=== PATIENT | male | born 1940 | race Caucasian/White ===

== ENCOUNTER 2018-06-25 16:07 | Emergency (ER) | payer MEDICARE, BC ==
[~2018-06-25] VITALS: Ht 180.3 cm; Wt 92.3 kg
[2018-06-25 16:24] VITALS: BP 153/75
[2018-06-25] MEDS ORDERED: furosemide 40mg/4ml inj IV ONE (16:30)
[2018-06-25 16:52] LABS: BASOPHILS % (AUTO) 0.4 % (0-1); EOSINOPHILS # (AUTO) 0.1 X10'3 (0-0.9); EOSINOPHILS % (AUTO) 1.3 % (0-6); HEMATOCRIT 36.1 % (42.0-52.0); HEMOGLOBIN 12.3 g/dl (14.0-17.9); LYMPHOCYTES # (AUTO) 0.9 X10'3 (1.1-4.8); LYMPHOCYTES % (AUTO) 19.8 % (21-51); MEAN CORPUSCULAR HEMOGLOBIN 33.3 PG (27.0-31.0); MEAN CORPUSCULAR VOLUME 97.8 FL (78-98); MEAN PLATELET VOLUME 8.3 FL (7.4-10.4); MONOCYTES # (AUTO) 0.5 X10'3 (0-0.9); MONOCYTES % (AUTO) 10.5 % (2-12); PLATELET COUNT 69 X10'3 (140-440); RED BLOOD COUNT 3.69 X10'6 (4.70-6.10); RED CELL DISTRIBUTION WIDTH 17.5 % (11.5-14.5); WHITE BLOOD COUNT 4.4 X10'3 (4.5-11.0)
[2018-06-25 17:06] LABS: ALANINE AMINOTRANSFERASE 25 U/L (12-78); ALBUMIN 2.9 G/DL (3.4-5.0); ALBUMIN/GLOBULIN RATIO 0.9 (1.1-1.5); ALKALINE PHOSPHATASE 93 IU/L (46-116); ANION GAP 7 (8-16); ASPARTATE AMINO TRANSFERASE 42 U/L (10-37); BILIRUBIN,TOTAL 0.5 MG/DL (0.1-1.0); BLOOD UREA NITROGEN 16 MG/DL (7-18); BUN/CREATININE RATIO 19.3 (5.4-32.0); CHLORIDE 110 MMOL/L (99-107); CREATININE 0.83 MG/DL (0.60-1.10); GLUCOSE 78 MG/DL (70-104); POTASSIUM 4.1 MMOL/L (3.5-5.1); SODIUM 146 MMOL/L (135-145); TOTAL CARBON DIOXIDE 29.5 MMOL/L (24-32); TOTAL PROTEIN 6.3 G/DL (6.4-8.2); eGFR 89 ML/MIN
[2018-06-25 17:25] LABS: INR 1.2 INR; PROTHROMBIN TIME 11.6 SECONDS (9.0-12.0)
--- NOTE | 2018-06-25 18:07 | NUR ---
TINNING EQUIPMENT TENDER IS ENROUTE.
--- NOTE | 2018-06-25 18:45 | NUR ---
VASC IN ROOM Addendum: 06/25/18 at 1852 by AVRIL VASC IN ROOM WHEN I WENT TO DO EKG
== END 2018-06-25 20:36 | disposition home or self-care (01) ==
LOC: ER 16:07
DX: I89.0 Lymphedema, not elsewhere classified (principal); R91.1 Solitary pulmonary nodule; R79.1 Abnormal coagulation profile; Z88.0 Allergy status to penicillin; Z88.2 Allergy status to sulfonamides; Z91.09 Other allergy status, other than to drugs and biological substances
CPT/HCPCS: 36415; 71045; 80053; 83880; 85025; 85610; 93971; 96374; 99284; J1940

== ENCOUNTER 2018-08-31 11:53 | Emergency (ER) | payer MEDICARE, BC ==
[~2018-08-31] VITALS: Ht 180.3 cm; Wt 114.5 kg
[2018-08-31] MEDS ORDERED: furosemide 10 MG/1 ML 10ml inj IM ONE (13:45)
[2018-08-31] MEDS ORDERED: HYDR-4383 PO (13:46)
[2018-08-31] MEDS ORDERED: FURO-150 PO (13:46)
--- NOTE | 2018-08-31 13:54 | NUR ---
BP PRIOR TO LASIX IS: 130/69
[2018-08-31 14:07] VITALS: BP 130/69
== END 2018-08-31 14:10 | disposition home or self-care (01) ==
LOC: ER 11:54
DX: R60.0 Localized edema (principal); G89.29 Other chronic pain; E78.00 Pure hypercholesterolemia, unspecified; E11.9 Type 2 diabetes mellitus without complications; E78.5 Hyperlipidemia, unspecified; Z90.89 Acquired absence of other organs; Z88.0 Allergy status to penicillin; Z88.2 Allergy status to sulfonamides
CPT/HCPCS: 93005; 96372; 99283; J1940

== ENCOUNTER 2018-10-21 10:37 | Inpatient (IN) | payer MEDICARE, BC ==
[~2018-10-21] VITALS: Ht 180.3 cm; Wt 118.0 kg
[~2018-10-21 10:37] MED LIST: FURO-150 PO; HYDR-4383 PO
[2018-10-21 11:28] LABS: BASOPHILS % (AUTO) 0.6 % (0-1); EOSINOPHILS # (AUTO) 0.5 X10'3 (0-0.9); EOSINOPHILS % (AUTO) 7.4 % (0-6); HEMATOCRIT 32.7 % (42.0-52.0); LYMPHOCYTES # (AUTO) 0.7 X10'3 (1.1-4.8); LYMPHOCYTES % (AUTO) 10.9 % (21-51); MEAN CORPUSCULAR HEMOGLOBIN 33.6 PG (27.0-31.0); MEAN CORPUSCULAR HGB CONC 33.6 g/dL (33.0-36.5); MEAN CORPUSCULAR VOLUME 99.9 FL (78-98); MEAN PLATELET VOLUME 7.9 FL (7.4-10.4); MONOCYTES # (AUTO) 0.7 X10'3 (0-0.9); MONOCYTES % (AUTO) 10.7 % (2-12); NEUTROPHILS # (AUTO) 4.6 X10'3 (1.8-7.7); NEUTROPHILS % (AUTO) 70.4 % (42-75); PLATELET COUNT 123 X10'3 (140-440); RED BLOOD COUNT 3.27 X10'6 (4.70-6.10); RED CELL DISTRIBUTION WIDTH 16.4 % (11.5-14.5); WHITE BLOOD COUNT 6.6 X10'3 (4.5-11.0)
[2018-10-21 11:43] LABS: PARTIAL THROMBOPLASTIN TIME 30 SECONDS (22-32)
--- NOTE | 2018-10-21 11:45 | NUR ---
PT TRYING TO GET OUT OF BED, STATES THAT NO ONE HAS BEEN IN. PT REASSURED, INFORMED THAT HE IS BEING TAKEN CARE OF BUT HIS NURSE IS WITH ANOTHER PT AT THIS TIME. PT DENIES BEING SICK. PT NOTED TO HAVE SIGNIFICAN AUDIBLE WHEEZES AND LL EDEMA AND PT WAS INFORMED THAT HE WAS BROUGHT TO THE ER FOR FURTHER EVALUATION. PT CONTINUES TO STATE HE WANTS TO GO HOME.
[2018-10-21 11:54] LABS: ALANINE AMINOTRANSFERASE 22 U/L (12-78); ALBUMIN 2.6 G/DL (3.4-5.0); ALBUMIN/GLOBULIN RATIO 0.7 (1.1-1.5); ALKALINE PHOSPHATASE 138 IU/L (46-116); ANION GAP 3 (8-16); ASPARTATE AMINO TRANSFERASE 33 U/L (10-37); BILIRUBIN,TOTAL 0.9 MG/DL (0.1-1.0); BLOOD UREA NITROGEN 18 MG/DL (7-18); BUN/CREATININE RATIO 16.2 (5.4-32.0); CALCIUM 9.1 MG/DL (8.5-10.1); CHLORIDE 106 MMOL/L (99-107); CREATININE 1.11 MG/DL (0.60-1.10); GLUCOSE 279 MG/DL (70-104); POTASSIUM 4.5 MMOL/L (3.5-5.1); SODIUM 137 MMOL/L (135-145); TOTAL CARBON DIOXIDE 27.6 MMOL/L (24-32); TOTAL PROTEIN 6.6 G/DL (6.4-8.2); eGFR 64 ML/MIN
--- NOTE | 2018-10-21 11:59 | NUR ---
PT ITCHING, PULLED ALL HIS EKG LEADS AND MONITORING OFF, SAYS THEY WERE IN THE WAY OF HIS "ITCHING"
[2018-10-21] MEDS ORDERED: aspirin 81mg tab.chew PO ONE (12:30)
[2018-10-21] MEDS ORDERED: furosemide 10 MG/1 ML 10ml inj IV ONE (12:30)
[2018-10-21] MEDS ORDERED: diphenhydrAMINE 50 mg/ml inj IV ONE (12:35)
[2018-10-21] MEDS ORDERED: heparin 25,000 UNIT/250ml bag 250 ML IV SCH (12:41)
[2018-10-21] MEDS ORDERED: heparin 10,000 units/1 ML INJ IV PRN (12:45)
[2018-10-21] MEDS ORDERED: potassium Cl 20 mEq SR tablet PO PRN ×2 (12:45)
[2018-10-21] MEDS ORDERED: heparin 10,000 units/1 ML INJ IV ONE (12:45)
[2018-10-21] MEDS ORDERED: acetaminophen 325mg tablet PO PRN (12:45)
[2018-10-21] MEDS ORDERED: magnesium 2GM in 50ml NS 50 ML IV PRN (12:45)
[2018-10-21] MEDS ORDERED: potassium CL 10mEq/100ml bag 100 ML IV PRN ×2 (12:45)
[2018-10-21] MEDS ORDERED: magnesium 4gm in 100ml NS 100 ML IV PRN (12:45)
[2018-10-21] MEDS ORDERED: magnesium hydroxide 30ml (MOM) UD suspension PO PRN (12:45)
[2018-10-21] MEDS ORDERED: ondansetron/PF 4mg/2ml inj IV PRN (12:45)
[2018-10-21] MEDS ORDERED: mag hydrox/Alum hydrox/simeth 30ml oral suspension PO PRN (12:45)
[2018-10-21] MEDS ORDERED: FURO20TA4 PO (13:06)
[2018-10-21] MEDS ORDERED: DEXT20CA4 PO (13:15)
[2018-10-21] MEDS ORDERED: INSU100V9 SQ (13:15)
[2018-10-21] MEDS ORDERED: BACL10TA PO (13:15)
[2018-10-21] MEDS ORDERED: OXYC-145 PO (13:15)
[2018-10-21] MEDS ORDERED: HYDR-3686 PO (13:15)
[2018-10-21] MEDS ORDERED: INSU100V11 SQ (13:15)
[2018-10-21] MEDS ORDERED: METF500T20 PO (13:15)
[2018-10-21] MEDS ORDERED: PRAM0.253 PO ×2 (13:15→15:02)
[2018-10-21] MEDS ORDERED: BUSP10TA10 PO (13:15)
[2018-10-21] MEDS ORDERED: ATOR40TA71 PO (13:15)
[2018-10-21] MEDS ORDERED: iohexol 350MG/ML 100ml bottle IV ONE (13:18)
--- NOTE | 2018-10-21 14:56 | NUR ---
I have received report from Ellen YODER and had the opportunity to ask questions, the patient has not yet arrived from the ED.
[2018-10-21 15:00] VITALS: BP 117/73
[2018-10-21] MEDS ORDERED: LISI2.5T2 PO (15:02)
[2018-10-21] MEDS ORDERED: FAMO20TA8 PO (15:02)
[2018-10-21] MEDS ORDERED: TRAM50TA2 PO (15:02)
[2018-10-21] MEDS ORDERED: DULO-31 PO (15:02)
--- NOTE | 2018-10-21 15:48 | NUR ---
Patient arrived with a POLST that states his wishes are to be a DNR, but he is listed as a full code in the system. Paged Dr Lucas to have him change code status. PAGER ID: [phone] MESSAGE: Shefali on ACCE at [phone] in 310. He just arrived from the ED if you want to come see him. Also, his wishes are to be a DNR. Can you discuss with him and change code status in the system? Thank you Addendum: 10/21/18 at 1750 by She[address]ali Soto RN Dr Lucas met with the patient and called patient's son. Order changed to Limited code, meds only.
[2018-10-21] MEDS: ipratropium/albuterol 3ml nebule NEB PRN ×3 (16:13→23:37)
[2018-10-21] MEDS ORDERED: MESSAGE TO PHARMACY PO ONE ×2 (16:40→17:50)
[2018-10-21] MEDS ORDERED: dextrose ORAL solution 15 GM/59 ML bottle PO PRN ×4 (16:40→17:50)
[2018-10-21] MEDS ORDERED: dextrose 50%-water 50ml dispensing syringe IV PRN ×4 (16:40→17:50)
[2018-10-21] MEDS ORDERED: glucagon, human recombinant 1mg kit SUBCUT PRN ×2 (16:40→17:50)
[2018-10-21] MEDS ORDERED: insulin Lispro (HumaLOG) vial - multi-dose SQ SCH (16:40)
[2018-10-21] MEDS ORDERED: metFORMIN 500mg tablet PO SCH (17:30)
[2018-10-21] MEDS: pramipexole 0.25mg tablet PO SCH ×2 (17:49→20:30)
--- NOTE | 2018-10-21 17:49 | NUR ---
PAGER ID: [phone] MESSAGE: Shefali on ACCE at [phone] re [address] in 310. The patient is saying he takes both Metformin AND Humalog/lantus at home, we typically do one or the other. Can you confirm what you want done with this?
[2018-10-21 18:00] VITALS: BP 127/52
--- NOTE | 2018-10-21 18:34 | NUR ---
Problems reprioritized. Patient report given, questions answered & plan of care reviewed with Jihan YODER.
--- NOTE | 2018-10-21 18:35 | NUR ---
ORientee documentation: I have reviewed and agree with all interventions, assessments performed and documented by Carmelina YODER. Orientee Medication Administration: For this medication-pass time frame, all medication were reviewed, dispensed, administered and documented per hospital policy by Carmelina YODER.
[2018-10-21] MEDS ORDERED: non-formulary drug (Metformin Hcl* (Metformin ER*) 1 TAB) PO SCH (20:00)
[2018-10-21] MEDS: famotidine 20mg tablet PO SCH (20:30)
[2018-10-21] MEDS: carVEDilol 3.125mg tablet PO SCH (20:31)
[2018-10-21] MEDS: apixaban 5mg tablet PO SCH (20:34)
[2018-10-21] MEDS: oxyCODONE IR 5mg (immed. release) tablet PO PRN (20:42)
[2018-10-21] MEDS ORDERED: insulin glargine (Lantus) pen - multi-dose SQ SCH (21:00)
[2018-10-21] MEDS ORDERED: pramipexole 0.25mg tablet PO SCH (21:00)
[2018-10-21] MEDS: insulin glargine (Lantus) pen - multi-dose SQ SCH (21:00)
[2018-10-21 22:00] VITALS: BP 108/57
[2018-10-21] MEDS: HYDROmorphone inj. 0.5 MG/0.5 ML DISP.SYRIN IV PRN (22:00)
--- NOTE | 2018-10-21 23:17 | NUR ---
Call placed to Dr Perry to notify MD workers' compensation hearings officer to notify him that pt was c/o itching terribly. Order obtained for Eric.
[2018-10-21] MEDS ORDERED: diphenhydrAMINE 25mg capsule PO ONE (23:20)
[2018-10-22 02:00] VITALS: BP 107/61
[2018-10-22] MEDS: ipratropium/albuterol 3ml nebule NEB PRN ×5 (03:42→20:40)
[2018-10-22] MEDS: oxyCODONE IR 5mg (immed. release) tablet PO PRN ×3 (04:18→18:16)
[2018-10-22 05:16] LABS: BASOPHILS % (AUTO) 0.5 % (0-1); EOSINOPHILS # (AUTO) 0.6 X10'3 (0-0.9); HEMATOCRIT 29.6 % (42.0-52.0); LYMPHOCYTES # (AUTO) 0.8 X10'3 (1.1-4.8); LYMPHOCYTES % (AUTO) 14.1 % (21-51); MEAN CORPUSCULAR HEMOGLOBIN 33.7 PG (27.0-31.0); MEAN CORPUSCULAR HGB CONC 33.8 g/dL (33.0-36.5); MEAN CORPUSCULAR VOLUME 99.6 FL (78-98); MEAN PLATELET VOLUME 8.1 FL (7.4-10.4); MONOCYTES # (AUTO) 0.5 X10'3 (0-0.9); MONOCYTES % (AUTO) 9.5 % (2-12); NEUTROPHILS # (AUTO) 3.7 X10'3 (1.8-7.7); NEUTROPHILS % (AUTO) 65.9 % (42-75); PLATELET COUNT 102 X10'3 (140-440); RED BLOOD COUNT 2.98 X10'6 (4.70-6.10); RED CELL DISTRIBUTION WIDTH 16.6 % (11.5-14.5); WHITE BLOOD COUNT 5.6 X10'3 (4.5-11.0)
[2018-10-22 05:23] LABS: ALANINE AMINOTRANSFERASE 19 U/L (12-78); ALBUMIN 2.3 G/DL (3.4-5.0); ALBUMIN/GLOBULIN RATIO 0.6 (1.1-1.5); ALKALINE PHOSPHATASE 125 IU/L (46-116); ANION GAP 5 (8-16); ASPARTATE AMINO TRANSFERASE 24 U/L (10-37); BILIRUBIN,TOTAL 1.2 MG/DL (0.1-1.0); BLOOD UREA NITROGEN 20 MG/DL (7-18); CALCIUM 8.5 MG/DL (8.5-10.1); CHLORIDE 105 MMOL/L (99-107); CHOL/HDL RATIO 2.2 (0.00-4.99); CHOLESTEROL 91 MG/DL (0-200); CREATININE 1.05 MG/DL (0.60-1.10); GLUCOSE 228 MG/DL (70-104); HDL CHOLESTEROL 42 MG/DL (35-60); LDL CHOLESTEROL 43 MG/DL (50-100); SODIUM 137 MMOL/L (135-145); TOTAL PROTEIN 5.9 G/DL (6.4-8.2); TRIGLYCERIDES 62 MG/DL (20-135); eGFR 68 ML/MIN
[2018-10-22] MEDS: HYDROmorphone inj. 0.5 MG/0.5 ML DISP.SYRIN IV PRN ×2 (05:39→22:05)
[2018-10-22 06:00] VITALS: BP 145/61
--- NOTE | 2018-10-22 06:24 | NUR ---
Patient in room MED 310. I have received report from Jihan YODER and had the opportunity to ask questions and assume patient care.
[2018-10-22] MEDS ORDERED: BUSPIRONE HCL PO SCH (08:00)
[2018-10-22] MEDS: K and/or MAG REPLACEMENT MC SCH (08:00)
[2018-10-22] MEDS: duloxetine 30mg CAPSULE.DR PO SCH (08:00)
[2018-10-22] MEDS: busPIRone 15mg tablet PO SCH (08:24)
[2018-10-22] MEDS: apixaban 5mg tablet PO SCH ×2 (08:25→19:40)
[2018-10-22] MEDS: carVEDilol 3.125mg tablet PO SCH ×2 (08:25→19:40)
[2018-10-22] MEDS: famotidine 20mg tablet PO SCH ×2 (08:29→19:40)
[2018-10-22] MEDS: lisinopril 2.5mg tablet PO SCH (08:30)
[2018-10-22] MEDS: pramipexole 0.25mg tablet PO SCH ×2 (08:32→22:06)
[2018-10-22] MEDS: furosemide 20 MG/2 ML vial IV SCH ×2 (09:18→19:40)
[2018-10-22] MEDS: insulin Lispro (HumaLOG) vial - multi-dose SQ SCH ×3 (10:26→22:16)
[2018-10-22 11:00] VITALS: BP 109/60
--- NOTE | 2018-10-22 11:26 | NUR ---
DM Consult: Pt A1C <7 and not appropriate for DM ed at this time. Addendum: 10/22/18 at [address] Amended: Links added.
[2018-10-22] MEDS ORDERED: pramipexole 0.25mg tablet PO SCH (12:30)
[2018-10-22 15:00] VITALS: BP 123/57
--- NOTE | 2018-10-22 15:33 | NUR ---
PAGER ID: [phone] MESSAGE: ROOM 310. PT YOUNG MCGHEE. PT. HAS HAD COMPLAINTS OF ITCHING, HAD A 1 TIME DOSE OF BENADRYL THAT HAS BEEN D/C. PLEASE ADVISE. THANK YOU. BEBA BARRETT [phone].
--- NOTE | 2018-10-22 17:36 | NUR ---
Orientee documentation: I have reviewed and agree with interventions, assessments performed and documented by Sari YODER.
[2018-10-22 18:00] VITALS: BP 122/62
--- NOTE | 2018-10-22 18:34 | NUR ---
Patient in room MED 310. I have received report from Treva YODER and had the opportunity to ask questions and assume patient care.
[2018-10-22] MEDS: triamcinolone acet 0.1% cream 15gm TP SCH (19:40)
[2018-10-22 22:00] VITALS: BP 130/66
[2018-10-22] MEDS: insulin glargine (Lantus) pen - multi-dose SQ SCH (22:18)
[2018-10-23] MEDS: ipratropium/albuterol 3ml nebule NEB PRN ×5 (02:53→20:49)
[2018-10-23] MEDS: HYDROmorphone inj. 0.5 MG/0.5 ML DISP.SYRIN IV PRN ×2 (02:54→17:36)
[2018-10-23] MEDS ORDERED: diphenhydrAMINE 25mg capsule PO PRN (03:30)
[2018-10-23 05:48] LABS: BASOPHILS % (AUTO) 0.3 % (0-1); EOSINOPHILS # (AUTO) 0.5 X10'3 (0-0.9); EOSINOPHILS % (AUTO) 10.8 % (0-6); HEMATOCRIT 30.3 % (42.0-52.0); HEMOGLOBIN 10.4 g/dl (14.0-17.9); LYMPHOCYTES # (AUTO) 0.9 X10'3 (1.1-4.8); LYMPHOCYTES % (AUTO) 17.8 % (21-51); MEAN CORPUSCULAR HEMOGLOBIN 34.1 PG (27.0-31.0); MEAN CORPUSCULAR HGB CONC 34.3 g/dL (33.0-36.5); MEAN CORPUSCULAR VOLUME 99.5 FL (78-98); MONOCYTES # (AUTO) 0.5 X10'3 (0-0.9); MONOCYTES % (AUTO) 9.6 % (2-12); NEUTROPHILS # (AUTO) 3.1 X10'3 (1.8-7.7); NEUTROPHILS % (AUTO) 61.5 % (42-75); PLATELET COUNT 107 X10'3 (140-440); RED BLOOD COUNT 3.04 X10'6 (4.70-6.10); RED CELL DISTRIBUTION WIDTH 16.5 % (11.5-14.5); WHITE BLOOD COUNT 5.1 X10'3 (4.5-11.0)
[2018-10-23 05:56] LABS: ALANINE AMINOTRANSFERASE 18 U/L (12-78); ALBUMIN 2.3 G/DL (3.4-5.0); ALBUMIN/GLOBULIN RATIO 0.6 (1.1-1.5); ALKALINE PHOSPHATASE 127 IU/L (46-116); ANION GAP 5 (8-16); ASPARTATE AMINO TRANSFERASE 25 U/L (10-37); BILIRUBIN,TOTAL 1.1 MG/DL (0.1-1.0); BLOOD UREA NITROGEN 24 MG/DL (7-18); BUN/CREATININE RATIO 21.4 (5.4-32.0); CALCIUM 8.4 MG/DL (8.5-10.1); CHLORIDE 104 MMOL/L (99-107); CREATININE 1.12 MG/DL (0.60-1.10); GLUCOSE 261 MG/DL (70-104); MAGNESIUM 1.9 MG/DL (1.5-2.4); POTASSIUM 4.1 MMOL/L (3.5-5.1); SODIUM 137 MMOL/L (135-145); TOTAL CARBON DIOXIDE 28.5 MMOL/L (24-32); eGFR 63 ML/MIN
[2018-10-23 06:00] VITALS: BP 118/60
--- NOTE | 2018-10-23 06:00 | NUR ---
Patient in room MED 310. I have received report from and had the opportunity to ask questions and assume patient care.
[2018-10-23] MEDS: K and/or MAG REPLACEMENT MC SCH (08:00)
[2018-10-23] MEDS: triamcinolone acet 0.1% cream 15gm TP SCH ×2 (08:00→19:45)
[2018-10-23] MEDS: duloxetine 30mg CAPSULE.DR PO SCH (08:00)
[2018-10-23] MEDS: busPIRone 15mg tablet PO SCH (09:37)
[2018-10-23] MEDS: pramipexole 0.25mg tablet PO SCH ×2 (09:37→13:52)
[2018-10-23] MEDS: apixaban 5mg tablet PO SCH ×2 (09:40→19:35)
[2018-10-23] MEDS: carVEDilol 3.125mg tablet PO SCH ×2 (09:41→19:35)
[2018-10-23] MEDS: oxyCODONE IR 5mg (immed. release) tablet PO PRN ×3 (09:42→23:24)
[2018-10-23] MEDS: lisinopril 2.5mg tablet PO SCH (09:42)
[2018-10-23] MEDS: famotidine 20mg tablet PO SCH ×2 (09:43→19:35)
[2018-10-23] MEDS: furosemide 20 MG/2 ML vial IV SCH ×2 (09:43→13:54)
[2018-10-23] MEDS: insulin Lispro (HumaLOG) vial - multi-dose SQ SCH ×4 (09:45→21:29)
[2018-10-23 11:00] VITALS: BP 114/55
[2018-10-23] MEDS: hydrOXYzine 25 MG tablet PO PRN (13:53)
--- NOTE | 2018-10-23 14:50 | NUR ---
PAGER ID: [phone] MESSAGE: 310: Dino - does he still require PCU/ACCE level of care? or do you mind if we downgrade to surgical or ortho/neuro? ty nurse Louise [phone]
[2018-10-23 15:00] VITALS: BP 122/59
--- NOTE | 2018-10-23 16:48 | NUR ---
I have received patient report from Carmelina YODER in avila
[2018-10-23 17:00] VITALS: BP 133/69
--- NOTE | 2018-10-23 17:10 | NUR ---
Pt JAE to Ortho Neuro room 4024A via WC at 17:15 with nurse aid. Pt was placed on tele box, placed on O2 at 2L via nasal canula. Pt left with all personal belongings.
--- NOTE | 2018-10-23 17:10 | NUR ---
Orientee documentation: I have reviewed and agree with interventions, assessments performed and documented by BEBA Cosme. Orientee Medication Administration: For this medication-pass time frame, all medication were reviewed, dispensed, administered and documented per hospital policy by BEBA Cosme .
--- NOTE | 2018-10-23 18:47 | NUR ---
Patient report given to Nathalie YODER
--- NOTE | 2018-10-23 20:30 | NUR ---
Patient in room ORTHO 4024. I have received report from BEBA Arias and had the opportunity to ask questions and assume patient care.
[2018-10-23] MEDS: montelukast 10mg tablet PO SCH (21:23)
[2018-10-23] MEDS: insulin glargine (Lantus) pen - multi-dose SQ SCH (21:28)
[2018-10-23 22:00] VITALS: BP 117/60
[2018-10-24 06:00] VITALS: BP 119/63
[2018-10-24] MEDS: oxyCODONE IR 5mg (immed. release) tablet PO PRN ×3 (06:29→17:19)
--- NOTE | 2018-10-24 06:35 | NUR ---
Problems reprioritized. Patient report given, questions answered & plan of care reviewed with BEBA Hayes.
[2018-10-24 06:40] LABS: BASOPHILS % (AUTO) 0.7 % (0-1); EOSINOPHILS # (AUTO) 0.7 X10'3 (0-0.9); EOSINOPHILS % (AUTO) 12.2 % (0-6); HEMATOCRIT 31.8 % (42.0-52.0); HEMOGLOBIN 10.9 g/dl (14.0-17.9); LYMPHOCYTES # (AUTO) 0.9 X10'3 (1.1-4.8); LYMPHOCYTES % (AUTO) 16.6 % (21-51); MEAN CORPUSCULAR HEMOGLOBIN 34.2 PG (27.0-31.0); MEAN CORPUSCULAR HGB CONC 34.1 g/dL (33.0-36.5); MEAN CORPUSCULAR VOLUME 100.2 FL (78-98); MEAN PLATELET VOLUME 7.8 FL (7.4-10.4); MONOCYTES # (AUTO) 0.6 X10'3 (0-0.9); MONOCYTES % (AUTO) 10.7 % (2-12); NEUTROPHILS # (AUTO) 3.4 X10'3 (1.8-7.7); NEUTROPHILS % (AUTO) 59.8 % (42-75); PLATELET COUNT 111 X10'3 (140-440); RED BLOOD COUNT 3.18 X10'6 (4.70-6.10); WHITE BLOOD COUNT 5.7 X10'3 (4.5-11.0)
--- NOTE | 2018-10-24 06:49 | NUR ---
Patient in room ORTHO 4024. I have received report from Nathalie YODER and had the opportunity to ask questions and assume patient care.
[2018-10-24 07:00] LABS: ALANINE AMINOTRANSFERASE 17 U/L (12-78); ALBUMIN 2.3 G/DL (3.4-5.0); ALBUMIN/GLOBULIN RATIO 0.6 (1.1-1.5); ALKALINE PHOSPHATASE 122 IU/L (46-116); ANION GAP 4 (8-16); ASPARTATE AMINO TRANSFERASE 21 U/L (10-37); BILIRUBIN,TOTAL 0.9 MG/DL (0.1-1.0); BLOOD UREA NITROGEN 26 MG/DL (7-18); BUN/CREATININE RATIO 25.2 (5.4-32.0); CALCIUM 7.9 MG/DL (8.5-10.1); CHLORIDE 102 MMOL/L (99-107); CREATININE 1.03 MG/DL (0.60-1.10); GLUCOSE 184 MG/DL (70-104); MAGNESIUM 1.8 MG/DL (1.5-2.4); SODIUM 135 MMOL/L (135-145); TOTAL CARBON DIOXIDE 28.6 MMOL/L (24-32); TOTAL PROTEIN 6.2 G/DL (6.4-8.2); eGFR 70 ML/MIN
[2018-10-24] MEDS: ipratropium/albuterol 3ml nebule NEB PRN ×2 (07:03→20:07)
[2018-10-24] MEDS: K and/or MAG REPLACEMENT MC SCH (07:08)
--- NOTE | 2018-10-24 07:23 | NUR ---
PAGER ID: [phone] MESSAGE: re: [id number] Chester baer patient very edematous and very short of breath respiratory saw patient and suggested to increase Lasix and or add solumedral, will continue to monitor Addendum: 10/24/18 at 1032 by Freddy Guardado RN hospitalist ordered chest xray
[2018-10-24] MEDS: furosemide 20 MG/2 ML vial IV SCH ×2 (07:35→13:59)
[2018-10-24] MEDS: pramipexole 0.25mg tablet PO SCH ×2 (07:35→14:00)
[2018-10-24] MEDS: carVEDilol 3.125mg tablet PO SCH ×2 (07:35→20:10)
[2018-10-24] MEDS: apixaban 5mg tablet PO SCH ×2 (07:36→20:10)
[2018-10-24] MEDS: duloxetine 30mg CAPSULE.DR PO SCH (07:36)
[2018-10-24] MEDS: lisinopril 2.5mg tablet PO SCH (07:37)
[2018-10-24] MEDS: busPIRone 15mg tablet PO SCH (07:37)
[2018-10-24] MEDS: famotidine 20mg tablet PO SCH ×2 (07:39→20:10)
[2018-10-24] MEDS: triamcinolone acet 0.1% cream 15gm TP SCH ×2 (07:39→20:11)
[2018-10-24] MEDS: insulin Lispro (HumaLOG) vial - multi-dose SQ SCH ×3 (09:13→21:28)
[2018-10-24 10:00] VITALS: BP 102/48
--- NOTE | 2018-10-24 10:32 | NUR ---
PAGER ID: [phone] MESSAGE: RE; [id number] Sun chest xray resulted
[2018-10-24] MEDS: hydrOXYzine 25 MG tablet PO PRN (10:44)
[2018-10-24] MEDS ORDERED: furosemide 10 MG/1 ML 10ml inj IV ONE (11:00)
[2018-10-24 14:00] VITALS: BP 112/78
[2018-10-24] MEDS ORDERED: furosemide 20 MG/2 ML vial IV SCH (14:00)
[2018-10-24] MEDS: baclofen 10mg tablet PO PRN (14:17)
[2018-10-24 17:00] VITALS: BP 90/44
[2018-10-24] MEDS: polyethylene glycol 3350 17gm powd pack PO PRN (17:18)
--- NOTE | 2018-10-24 18:26 | NUR ---
Problems reprioritized. Patient report given, questions answered & plan of care reviewed with Candice YODER.
--- NOTE | 2018-10-24 18:40 | NUR ---
Patient in room ORTHO 4024A. I have received report from BEBA Sousa and had the opportunity to ask questions and assume patient care.
[2018-10-24] MEDS: montelukast 10mg tablet PO SCH (20:10)
[2018-10-24] MEDS: HYDROmorphone 1 mg/ml syringe IV PRN (20:16)
[2018-10-24] MEDS: insulin glargine (Lantus) pen - multi-dose SQ SCH (20:25)
[2018-10-24 22:00] VITALS: BP 102/51
[2018-10-25] MEDS: baclofen 10mg tablet PO PRN (03:48)
[2018-10-25] MEDS: oxyCODONE IR 5mg (immed. release) tablet PO PRN ×2 (03:51→12:11)
[2018-10-25] MEDS: hydrOXYzine 25 MG tablet PO PRN ×2 (03:51→12:10)
--- NOTE | 2018-10-25 06:16 | NUR ---
Problems reprioritized. Patient report given, questions answered & plan of care reviewed with BEBA Mijares.
[2018-10-25 06:50] LABS: BASOPHILS % (AUTO) 0.4 % (0-1); EOSINOPHILS # (AUTO) 0.9 X10'3 (0-0.9); EOSINOPHILS % (AUTO) 13.3 % (0-6); HEMATOCRIT 29.4 % (42.0-52.0); HEMOGLOBIN 10.1 g/dl (14.0-17.9); LYMPHOCYTES # (AUTO) 1.1 X10'3 (1.1-4.8); LYMPHOCYTES % (AUTO) 15.6 % (21-51); MEAN CORPUSCULAR HEMOGLOBIN 34.4 PG (27.0-31.0); MEAN CORPUSCULAR HGB CONC 34.3 g/dL (33.0-36.5); MEAN CORPUSCULAR VOLUME 100.1 FL (78-98); MEAN PLATELET VOLUME 8.4 FL (7.4-10.4); MONOCYTES # (AUTO) 0.7 X10'3 (0-0.9); MONOCYTES % (AUTO) 10.3 % (2-12); NEUTROPHILS # (AUTO) 4.3 X10'3 (1.8-7.7); NEUTROPHILS % (AUTO) 60.4 % (42-75); PLATELET COUNT 120 X10'3 (140-440); RED BLOOD COUNT 2.94 X10'6 (4.70-6.10); RED CELL DISTRIBUTION WIDTH 16.9 % (11.5-14.5)
[2018-10-25 07:06] LABS: ALANINE AMINOTRANSFERASE 16 U/L (12-78); ALBUMIN 2.2 G/DL (3.4-5.0); ALBUMIN/GLOBULIN RATIO 0.6 (1.1-1.5); ALKALINE PHOSPHATASE 116 IU/L (46-116); ANION GAP 4 (8-16); ASPARTATE AMINO TRANSFERASE 26 U/L (10-37); BILIRUBIN,TOTAL 0.8 MG/DL (0.1-1.0); BLOOD UREA NITROGEN 31 MG/DL (7-18); CALCIUM 8.3 MG/DL (8.5-10.1); CHLORIDE 103 MMOL/L (99-107); CREATININE 0.97 MG/DL (0.60-1.10); GLUCOSE 57 MG/DL (70-104); POTASSIUM 3.8 MMOL/L (3.5-5.1); SODIUM 136 MMOL/L (135-145); TOTAL CARBON DIOXIDE 29.2 MMOL/L (24-32); TOTAL PROTEIN 5.8 G/DL (6.4-8.2); eGFR 75 ML/MIN
[2018-10-25 07:37] VITALS: BP 98/36
[2018-10-25] MEDS: K and/or MAG REPLACEMENT MC SCH (08:00)
[2018-10-25] MEDS: lisinopril 2.5mg tablet PO SCH (08:47)
[2018-10-25] MEDS: furosemide 20 MG/2 ML vial IV SCH ×2 (08:47→14:57)
[2018-10-25] MEDS: busPIRone 15mg tablet PO SCH (08:48)
[2018-10-25] MEDS: duloxetine 30mg CAPSULE.DR PO SCH (08:48)
[2018-10-25] MEDS: carVEDilol 3.125mg tablet PO SCH ×2 (08:48→20:38)
[2018-10-25] MEDS: pramipexole 0.25mg tablet PO SCH ×2 (08:48→14:56)
[2018-10-25] MEDS: apixaban 5mg tablet PO SCH ×2 (08:48→20:38)
[2018-10-25] MEDS: famotidine 20mg tablet PO SCH ×2 (08:48→20:38)
[2018-10-25] MEDS: HYDROmorphone 1 mg/ml syringe IV PRN (08:52)
[2018-10-25] MEDS: triamcinolone acet 0.1% cream 15gm TP SCH ×2 (09:41→20:44)
--- NOTE | 2018-10-25 09:42 | NUR ---
PT VERY UNHAPPY WITH PHYSICAL THERAPIST AND AID AND REQUESTING TO HAVE DIFFERENT PEOPLE FOR NEXT THERAPY SESSION. BLOOD SUGAR BEFORE BREAKFAST 45 VSS PT ALERT AND ORIENTED. 2 GLUCOSE ORAL SHOTS GIVEN PER PROTOCOL, BLOOD SUGAR RETURNED TO NORMAL LIMITS 111, NO INSULIN GIVEN. WILL CONTINUE TO MONITOR.
--- NOTE | 2018-10-25 11:19 | NUR ---
Initial: Pt admit w/ acute respiratory failure. Hx T2DM, CHF, HTN. PO fluctuates 25-50% carb controlled/heart healthy diet eating only protein at dinner last night. No BM noted since admit 4d; LONDON d/w RN for routine bowel care and MVI given MCV 100.1 receiving lasix per MD approval. No hx etoh. Pt received DEX for low GLU 49 this AM; no receiving Lantus and now GLU 111. IF PO continues would benefit from removal of carb controlled restriction. Will continue to monitor. Rec: 1. continue carb controlled/heart healthy diet 2. IF low PO and lo GLU continues consider removal of carb restriction 3. MVI/routine bowel care per MD for constipation/MCV 100.1 on lasix 4. weekly wts Addendum: 10/25/18 at [address] Amended: Links added.
[2018-10-25] MEDS: morphine 2 MG/ML inj. syringe IV PRN ×2 (14:57→18:59)
[2018-10-25] MEDS: polyethylene glycol 3350 17gm powd pack PO PRN (14:58)
[2018-10-25] MEDS: ipratropium/albuterol 3ml nebule NEB PRN ×2 (15:28→20:33)
[2018-10-25 18:00] VITALS: BP 102/34
[2018-10-25] MEDS: insulin Lispro (HumaLOG) vial - multi-dose SQ SCH (18:55)
[2018-10-25] MEDS: insulin glargine (Lantus) pen - multi-dose SQ SCH (20:35)
[2018-10-25] MEDS: montelukast 10mg tablet PO SCH (20:38)
[2018-10-25 22:00] VITALS: BP 126/48
[2018-10-26] MEDS: oxyCODONE IR 5mg (immed. release) tablet PO PRN ×2 (01:09→05:42)
[2018-10-26] MEDS: morphine 2 MG/ML inj. syringe IV PRN ×6 (03:09→22:31)
[2018-10-26] MEDS: polyethylene glycol 3350 17gm powd pack PO PRN ×2 (03:18→21:18)
[2018-10-26] MEDS: baclofen 10mg tablet PO PRN ×2 (03:31→21:11)
--- NOTE | 2018-10-26 06:34 | NUR ---
Problems reprioritized. Patient report given, questions answered & plan of care reviewed with BEBA CORDON.
[2018-10-26 07:09] VITALS: BP 109/67
[2018-10-26 07:39] LABS: EOSINOPHILS # (AUTO) 0.7 X10'3 (0-0.9); LYMPHOCYTES # (AUTO) 0.9 X10'3 (1.1-4.8); MONOCYTES # (AUTO) 0.6 X10'3 (0-0.9)
[2018-10-26 07:43] LABS: ALANINE AMINOTRANSFERASE 17 U/L (12-78); ALBUMIN 2.3 G/DL (3.4-5.0); ALBUMIN/GLOBULIN RATIO 0.6 (1.1-1.5); ALKALINE PHOSPHATASE 123 IU/L (46-116); ANION GAP 6 (8-16); ASPARTATE AMINO TRANSFERASE 28 U/L (10-37); BILIRUBIN,TOTAL 0.9 MG/DL (0.1-1.0); BLOOD UREA NITROGEN 31 MG/DL (7-18); BUN/CREATININE RATIO 30.4 (5.4-32.0); CALCIUM 8.3 MG/DL (8.5-10.1); CHLORIDE 103 MMOL/L (99-107); CREATININE 1.02 MG/DL (0.60-1.10); GLUCOSE 125 MG/DL (70-104); POTASSIUM 4.1 MMOL/L (3.5-5.1); SODIUM 139 MMOL/L (135-145); TOTAL CARBON DIOXIDE 29.8 MMOL/L (24-32); eGFR 70 ML/MIN
[2018-10-26 07:48] LABS: BASOPHILS % (AUTO) 0.7 % (0-1); EOSINOPHILS % (AUTO) 13.7 % (0-6); HEMATOCRIT 31.2 % (42.0-52.0); HEMOGLOBIN 10.6 g/dl (14.0-17.9); LYMPHOCYTES % (AUTO) 17.5 % (21-51); MEAN CORPUSCULAR HEMOGLOBIN 34.1 PG (27.0-31.0); MEAN CORPUSCULAR HGB CONC 33.9 g/dL (33.0-36.5); MEAN CORPUSCULAR VOLUME 100.4 FL (78-98); MEAN PLATELET VOLUME 8.4 FL (7.4-10.4); MONOCYTES % (AUTO) 11.4 % (2-12); NEUTROPHILS % (AUTO) 56.7 % (42-75); PLATELET COUNT 93 X10'3 (140-440); RED BLOOD COUNT 3.11 X10'6 (4.70-6.10); RED CELL DISTRIBUTION WIDTH 17.1 % (11.5-14.5); WHITE BLOOD COUNT 5.3 X10'3 (4.5-11.0)
[2018-10-26] MEDS: K and/or MAG REPLACEMENT MC SCH (08:00)
[2018-10-26] MEDS: lisinopril 2.5mg tablet PO SCH (08:00)
[2018-10-26] MEDS: triamcinolone acet 0.1% cream 15gm TP SCH ×2 (08:00→19:30)
[2018-10-26] MEDS: furosemide 20 MG/2 ML vial IV SCH ×3 (08:44→23:54)
[2018-10-26] MEDS: famotidine 20mg tablet PO SCH ×2 (08:44→19:29)
[2018-10-26] MEDS: duloxetine 30mg CAPSULE.DR PO SCH (08:44)
[2018-10-26] MEDS: carVEDilol 3.125mg tablet PO SCH ×2 (08:44→19:30)
[2018-10-26] MEDS: busPIRone 15mg tablet PO SCH (08:44)
[2018-10-26] MEDS: apixaban 5mg tablet PO SCH ×2 (08:44→19:30)
[2018-10-26] MEDS: pramipexole 0.25mg tablet PO SCH ×2 (08:44→14:00)
[2018-10-26] MEDS: hydrOXYzine 25 MG tablet PO PRN ×2 (08:50→16:10)
[2018-10-26 09:10] LABS: ANISOCYTOSIS 1+; PLATELET ESTIMATE DECREASED
[2018-10-26 09:11] LABS: LARGE PLATELETS FEW; POLYCHROMASIA 1+
[2018-10-26 11:16] VITALS: BP 101/35
[2018-10-26] MEDS: insulin Lispro (HumaLOG) vial - multi-dose SQ SCH ×2 (14:26→19:25)
[2018-10-26] MEDS: montelukast 10mg tablet PO SCH (19:30)
[2018-10-26] MEDS: insulin glargine (Lantus) pen - multi-dose SQ SCH (21:22)
[2018-10-26] MEDS: ipratropium/albuterol 3ml nebule NEB PRN (23:34)
[2018-10-27] MEDS: morphine 2 MG/ML inj. syringe IV PRN ×3 (02:37→14:51)
--- NOTE | 2018-10-27 02:42 | NUR ---
PT BELIEVES THAT HE DIDN'T GET BREATHING TREATMENT TONIGHT BUT RT CAME AT 2330. PT SAID @2330 I WAS AWAKE AND I KNOW I DIDN'T GET BREATHING TREATMENT. I SAW RT AROUND THAT TIME.
[2018-10-27] MEDS: oxyCODONE IR 5mg (immed. release) tablet PO PRN ×2 (05:02→12:16)
[2018-10-27 06:00] VITALS: BP 113/64
--- NOTE | 2018-10-27 06:35 | NUR ---
Problems reprioritized. Patient report given, questions answered & plan of care reviewed with BEBA CORDON.
[2018-10-27 06:37] LABS: ALBUMIN 2.3 G/DL (3.4-5.0); ANION GAP 4 (8-16); BLOOD UREA NITROGEN 30 MG/DL (7-18); BUN/CREATININE RATIO 29.4 (5.4-32.0); CALCIUM 8.1 MG/DL (8.5-10.1); CHLORIDE 104 MMOL/L (99-107); CREATININE 1.02 MG/DL (0.60-1.10); GLUCOSE 80 MG/DL (70-104); POTASSIUM 3.7 MMOL/L (3.5-5.1); SODIUM 139 MMOL/L (135-145); TOTAL CARBON DIOXIDE 31.5 MMOL/L (24-32); eGFR 70 ML/MIN
[2018-10-27] MEDS: baclofen 10mg tablet PO PRN (07:26)
[2018-10-27] MEDS: pramipexole 0.25mg tablet PO SCH ×2 (07:26→14:28)
[2018-10-27] MEDS: furosemide 20 MG/2 ML vial IV SCH ×3 (07:26→23:44)
[2018-10-27] MEDS: apixaban 5mg tablet PO SCH ×2 (07:26→23:43)
[2018-10-27] MEDS: carVEDilol 3.125mg tablet PO SCH ×2 (07:26→23:43)
[2018-10-27] MEDS: famotidine 20mg tablet PO SCH ×2 (07:26→23:43)
[2018-10-27] MEDS: busPIRone 15mg tablet PO SCH (07:26)
[2018-10-27] MEDS: duloxetine 30mg CAPSULE.DR PO SCH (07:26)
[2018-10-27] MEDS: hydrOXYzine 25 MG tablet PO PRN ×2 (07:26→14:27)
[2018-10-27] MEDS: triamcinolone acet 0.1% cream 15gm TP SCH ×2 (07:27→23:44)
[2018-10-27] MEDS: K and/or MAG REPLACEMENT MC SCH (07:27)
[2018-10-27] MEDS: lisinopril 2.5mg tablet PO SCH (07:27)
--- NOTE | 2018-10-27 09:16 | NUR ---
Spoke with Dr Mota and received orders to discontinue tele monitoring. PCU senior java architect
[2018-10-27 10:11] VITALS: BP 116/58
[2018-10-27] MEDS: ipratropium/albuterol 3ml nebule NEB PRN (10:18)
[2018-10-27] MEDS: insulin Lispro (HumaLOG) vial - multi-dose SQ SCH ×2 (15:26→19:45)
[2018-10-27 18:00] VITALS: BP_SYST 125; BP_SYST 137; BP_DIAS 51; BP_DIAS 65
--- NOTE | 2018-10-27 18:09 | NUR ---
Patient in room ORTHO 4024. I have received report from BEBA PAIZ and had the opportunity to ask questions and assume patient care.
--- NOTE | 2018-10-27 19:19 | NUR ---
PT IS IN A BAD MOOD. NOT TALKING. DINNER TRAY IS IN FRONT BUT NOT EATING. SAID WILL EAT LATER. SO NOT ABLE TO COVER DINNER FOR DM PROTOCOL NOW.
[2018-10-27] MEDS: insulin glargine (Lantus) pen - multi-dose SQ SCH (21:09)
--- NOTE | 2018-10-27 21:18 | NUR ---
PT TRYING TO IGNORE. NOT TALKING NOR OPENING EYES. PT IS REFUSING TO TAKE MEDICATION. WHEN I ASKED IF I CAN GIVE LASIX, HE DOESN'T GIVE ANY ANSWERS. I EXPLAINED BENEFIT OF TAKING MEDICATION. WHEN I TRY TO GIVE MEDICATION HE PULLED HIS ARM FROM ME AND SHOWED NO INTENTION OF TAKING MEDICATION.
[2018-10-27 22:00] VITALS: BP 130/96
--- NOTE | 2018-10-27 23:42 | NUR ---
I OFFERED NIGHT TIME MEDICATION MULTIPLE TIMES BUT PT WON'T RESPOND.
[2018-10-27] MEDS: montelukast 10mg tablet PO SCH (23:44)
[2018-10-28] MEDS: morphine 2 MG/ML inj. syringe IV PRN ×4 (00:31→12:56)
[2018-10-28] MEDS: hydrOXYzine 25 MG tablet PO PRN ×2 (00:35→08:42)
[2018-10-28] MEDS: baclofen 10mg tablet PO PRN ×2 (00:35→08:41)
[2018-10-28] MEDS: polyethylene glycol 3350 17gm powd pack PO PRN (05:16)
[2018-10-28 06:00] VITALS: BP 128/66
[2018-10-28 06:06] LABS: ALBUMIN 2.4 G/DL (3.4-5.0); ANION GAP 5 (8-16); BLOOD UREA NITROGEN 27 MG/DL (7-18); BUN/CREATININE RATIO 27.3 (5.4-32.0); CALCIUM 8.4 MG/DL (8.5-10.1); CHLORIDE 104 MMOL/L (99-107); CREATININE 0.99 MG/DL (0.60-1.10); GLUCOSE 114 MG/DL (70-104); POTASSIUM 3.6 MMOL/L (3.5-5.1); SODIUM 141 MMOL/L (135-145); TOTAL CARBON DIOXIDE 32.1 MMOL/L (24-32); eGFR 73 ML/MIN
--- NOTE | 2018-10-28 06:37 | NUR ---
Problems reprioritized. Patient report given, questions answered & plan of care reviewed with BEBA GALLEGO.
[2018-10-28] MEDS: K and/or MAG REPLACEMENT MC SCH (08:00)
[2018-10-28] MEDS: furosemide 20 MG/2 ML vial IV SCH (08:35)
[2018-10-28] MEDS: busPIRone 15mg tablet PO SCH (08:40)
[2018-10-28] MEDS: lisinopril 2.5mg tablet PO SCH (08:41)
[2018-10-28] MEDS: carVEDilol 3.125mg tablet PO SCH (08:41)
[2018-10-28] MEDS: famotidine 20mg tablet PO SCH (08:41)
[2018-10-28] MEDS: pramipexole 0.25mg tablet PO SCH ×2 (08:41→13:37)
[2018-10-28] MEDS: duloxetine 30mg CAPSULE.DR PO SCH (08:41)
[2018-10-28] MEDS: apixaban 5mg tablet PO SCH (08:41)
[2018-10-28] MEDS: triamcinolone acet 0.1% cream 15gm TP SCH (08:45)
[2018-10-28] MEDS ORDERED: morphine 2 MG/ML inj. syringe IV ONE (09:35)
[2018-10-28] MEDS ORDERED: furosemide 10 MG/1 ML 10ml inj IV ONE (09:50)
[2018-10-28 10:00] VITALS: BP 118/64
[2018-10-28] MEDS: ipratropium/albuterol 3ml nebule NEB PRN (10:38)
--- NOTE | 2018-10-28 12:08 | NUR ---
reassessment: Pt PO continues to fluctuate between 50% avg w/ some refusal of meals. Noted to be resistive to care not making eye contact last physical assessment. No BM in 7 days took miralax PRN today but only second dose this admit for bowel care. LONDON smiley.roseline WHITE for routine bowel care and MVI given constipation and on lasix w/ MCV 100.4 per MD approval. RN was also notified of MD page. Will continue to monitor for additional bowel care needs. Rec: 1. continue carb controlled/heart healthy diet 2. routine bowel care per MD for 7d constipation 3. MVI per MD; MCV 100.4 on lasix 4. weekly wts Addendum: 10/28/18 at [address] Amended: Links added.
[2018-10-28] MEDS: insulin Lispro (HumaLOG) vial - multi-dose SQ SCH (13:28)
[2018-10-28] MEDS: oxyCODONE IR 5mg (immed. release) tablet PO PRN (15:21)
[2018-10-28] MEDS ORDERED: furosemide 10 MG/1 ML 10ml inj IV SCH (17:00)
--- NOTE | 2018-10-28 18:18 | NUR ---
Patient stable for transfer to [facility] today. All belongings sent with patient.
== END 2018-10-28 17:00 | DRG 291 ==
LOC: ER 10:38 → MED 3N 14:32 → CMPBEDREQ 18:31 → ORTHO 4S 10-23 17:16
PROVIDERS: ADMIT Family Medicine; ATTEND Internal Medicine
PROC: B32T1ZZ Computerized Tomography (CT Scan) of Left Pulmonary Artery using Low Osmolar Contrast (ICD-10-PCS; principal; 2018-10-21)
PROC: B3201ZZ Computerized Tomography (CT Scan) of Thoracic Aorta using Low Osmolar Contrast (ICD-10-PCS; 2018-10-21)
PROC: B32S1ZZ Computerized Tomography (CT Scan) of Right Pulmonary Artery using Low Osmolar Contrast (ICD-10-PCS; 2018-10-21)
DX: I11.0 Hypertensive heart disease with heart failure (principal); J96.01 Acute respiratory failure with hypoxia; I82.591 Chronic embolism and thrombosis of other specified deep vein of right lower extremity; I50.33 Acute on chronic diastolic (congestive) heart failure; E11.9 Type 2 diabetes mellitus without complications; D63.8 Anemia in other chronic diseases classified elsewhere; E78.00 Pure hypercholesterolemia, unspecified; I48.0 Paroxysmal atrial fibrillation; L50.9 Urticaria, unspecified; E78.5 Hyperlipidemia, unspecified; M51.36 Other intervertebral disc degeneration, lumbar region; F32.9 Major depressive disorder, single episode, unspecified; E66.9 Obesity, unspecified; G89.29 Other chronic pain; R91.8 Other nonspecific abnormal finding of lung field; Z79.01 Long term (current) use of anticoagulants; Z79.899 Other long term (current) drug therapy; Z85.51 Personal history of malignant neoplasm of bladder; Z87.891 Personal history of nicotine dependence; Z79.4 Long term (current) use of insulin; Z88.2 Allergy status to sulfonamides; Z88.8 Allergy status to other drugs, medicaments and biological substances; Z88.0 Allergy status to penicillin; Z68.36 Body mass index [BMI] 36.0-36.9, adult
CPT/HCPCS: 36415; 71045; 71046; 71275; 80048; 80053; 80061; 82948; 83036; 83735; 83880; 84484; 85025; 85610; 85730; 87081; 93005; 93306; 93970; 94640; 94760; 96365; 96375; 97110; 97116; 97162; 97530; 99285; G0378; J1170; J1200; J1644; J1815; J1940; J2270; Q0163; Q9967; Z7610

== ENCOUNTER 2019-02-16 13:33 | Inpatient (IN) | payer MEDICARE, BC ==
[~2019-02-16] VITALS: Ht 180.3 cm; Wt 100.0 kg
[~2019-02-16 13:33] MED LIST changes: +BUSP10TA10 PO; +DULO-31 PO; +FAMO20TA8 PO; -FURO-150 PO; +FURO20TA4 PO; +HYDR-3686 PO; -HYDR-4383 PO; +INSU100V11 SQ; +INSU100V9 SQ; +LISI2.5T2 PO; +METF500T20 PO; +PRAM0.253 PO; +TRAM50TA2 PO
[2019-02-16] MEDS ORDERED: morphine 5 MG/ML injection IV ONE (14:50)
[2019-02-16 14:56] LABS: BASOPHILS % (AUTO) 0.3 % (0-1); EOSINOPHILS # (AUTO) 0.1 X10'3 (0-0.9); EOSINOPHILS % (AUTO) 2.2 % (0-6); HEMATOCRIT 33.8 % (42.0-52.0); HEMOGLOBIN 11.7 g/dl (14.0-17.9); LYMPHOCYTES # (AUTO) 0.5 X10'3 (1.1-4.8); LYMPHOCYTES % (AUTO) 10.7 % (21-51); MEAN CORPUSCULAR HEMOGLOBIN 35.3 PG (27.0-31.0); MEAN CORPUSCULAR HGB CONC 34.5 g/dL (33.0-36.5); MEAN CORPUSCULAR VOLUME 102.1 FL (78-98); MEAN PLATELET VOLUME 8.7 FL (7.4-10.4); MONOCYTES # (AUTO) 0.4 X10'3 (0-0.9); MONOCYTES % (AUTO) 8.4 % (2-12); NEUTROPHILS # (AUTO) 3.6 X10'3 (1.8-7.7); NEUTROPHILS % (AUTO) 78.4 % (42-75); PLATELET COUNT 65 X10'3 (140-440); RED BLOOD COUNT 3.31 X10'6 (4.70-6.10); RED CELL DISTRIBUTION WIDTH 16.3 % (11.5-14.5); WHITE BLOOD COUNT 4.5 X10'3 (4.5-11.0)
[2019-02-16] MEDS ORDERED: morphine 10mg/ml inj. IV ONE (15:05)
--- NOTE | 2019-02-16 15:11 | NUR ---
MEDICINE TEACHER HERE TO TAKE PT TO CT VIA [facility]
[2019-02-16 15:15] LABS: ALANINE AMINOTRANSFERASE 42 U/L (12-78); ALBUMIN 2.4 G/DL (3.4-5.0); ALBUMIN/GLOBULIN RATIO 0.6 (1.1-1.5); ALKALINE PHOSPHATASE 152 IU/L (46-116); ANION GAP 8 (8-16); ASPARTATE AMINO TRANSFERASE 57 U/L (10-37); BILIRUBIN,TOTAL 1.8 MG/DL (0.1-1.0); BLOOD UREA NITROGEN 15 MG/DL (7-18); BUN/CREATININE RATIO 16.5 (5.4-32.0); CALCIUM 8.3 MG/DL (8.5-10.1); CHLORIDE 107 MMOL/L (99-107); CREATININE 0.91 MG/DL (0.60-1.10); GLUCOSE 289 MG/DL (70-104); POTASSIUM 4.2 MMOL/L (3.5-5.1); SODIUM 140 MMOL/L (135-145); TOTAL CARBON DIOXIDE 24.6 MMOL/L (24-32); TOTAL PROTEIN 6.1 G/DL (6.4-8.2); eGFR 80 ML/MIN
[2019-02-16] MEDS ORDERED: acetaminophen 325mg tablet PO PRN ×2 (15:20→16:30)
[2019-02-16] MEDS ORDERED: mag hydrox/Alum hydrox/simeth 30ml oral suspension PO PRN (15:20)
[2019-02-16] MEDS ORDERED: potassium CL 10mEq/100ml bag 100 ML IV PRN ×2 (15:20)
[2019-02-16] MEDS ORDERED: magnesium Cl slow-release 64mg tablet PO PRN (15:20)
[2019-02-16] MEDS ORDERED: magnesium 2GM in 50ml NS 50 ML IV PRN (15:20)
[2019-02-16] MEDS ORDERED: magnesium 4gm in 100ml NS 100 ML IV PRN (15:20)
[2019-02-16] MEDS ORDERED: docusate sod 100mg capsule PO PRN (15:20)
[2019-02-16] MEDS ORDERED: dextrose ORAL solution 15 GM/59 ML bottle PO PRN ×2 (15:20)
[2019-02-16] MEDS ORDERED: potassium Cl 20 mEq SR tablet PO PRN ×2 (15:20)
[2019-02-16] MEDS ORDERED: glucagon, human recombinant 1mg kit SUBCUT PRN (15:20)
[2019-02-16] MEDS ORDERED: ondansetron/PF 4mg/2ml inj IV PRN (15:20)
[2019-02-16] MEDS ORDERED: MESSAGE TO PHARMACY PO ONE (15:20)
[2019-02-16] MEDS ORDERED: HYDROmorphone inj. 0.5 MG/0.5 ML DISP.SYRIN IV PRN (15:20)
[2019-02-16] MEDS ORDERED: dextrose 50%-water 50ml dispensing syringe IV PRN ×2 (15:20)
--- NOTE | 2019-02-16 15:59 | NUR ---
PT BACK FROM CT AND STATES, I FEEL A LITTLE BETTER, THANK YOU
[2019-02-16] MEDS ORDERED: ACET-812 PO (16:19)
[2019-02-16] MEDS ORDERED: LIDO700A47 TOP (16:19)
[2019-02-16] MEDS ORDERED: INSU100V5 IJ (16:19)
[2019-02-16 16:24] LABS: HEMOGLOBIN A1C 6.2 % (4.5-6.2)
[2019-02-16] MEDS ORDERED: LIDOcaine 5% patch TP PRN (16:30)
[2019-02-16] MEDS ORDERED: LINA5TAB4 PO (16:37)
[2019-02-16] MEDS ORDERED: BACL10TA2 PO (16:37)
[2019-02-16] MEDS ORDERED: CARV3.1244 PO (16:37)
[2019-02-16] MEDS ORDERED: BUPR100T16 PO (16:37)
[2019-02-16] MEDS ORDERED: PER5325T PO (16:37)
[2019-02-16] MEDS ORDERED: RANI150T8 PO (16:37)
[2019-02-16 16:47] LABS: CLARITY,URINE CLEAR (Clear); GLUCOSE, URINE >=1000 mg/dl (Neg); KETONES,URINE NEGATIVE (Neg); LEUKOCYTE ESTERASE ,URINE NEGATIVE (Neg); NITRITES, URINE NEGATIVE (Neg); OCCULT BLOOD,URINE NEGATIVE (Neg); PROTEIN,URINE 100 mg/dl (Neg)
[2019-02-16] MEDS: HYDROmorphone 1 mg/ml syringe IV PRN ×2 (16:50→20:30)
[2019-02-16 16:51] LABS: COLOR,URINE DARK YELLOW (Yellow); UA COLLECTION TYPE VOIDED
[2019-02-16 16:54] LABS: BACTERIA,URINE NONE SEEN /HPF (Neg); SQUAMOUS EPITHELIAL CELL,UR NONE SEEN /LPF (FEW); WBC,URINE 0-4 /HPF (0-4)
[2019-02-16 16:55] LABS: RBC,URINE 0-2 /HPF (0-2)
[2019-02-16 17:47] VITALS: BP 143/75
[2019-02-16] MEDS ORDERED: morphine/NS 5 mg/ml CADD 50 ML IV SCH (21:00)
[2019-02-16 21:18] VITALS: BP 140/71
[2019-02-16] MEDS: insulin glargine (Lantus) pen - multi-dose SQ SCH (21:18)
[2019-02-16] MEDS: pramipexole 0.25mg tablet PO SCH (21:19)
[2019-02-16] MEDS ORDERED: CADD PCA waste documentation MC SCH (21:30)
--- NOTE | 2019-02-16 22:00 | NUR ---
Pt refusing new IV insertion. Educated pt on higher risk of infection with field start IV, as well as needing one for surgery, however, pt still refused.
[2019-02-16] MEDS: HYDROmorphone/NS 1 mg/ml CADD 50 ML IV SCH ×2 (22:05→23:00)
[2019-02-16] MEDS: normal saline 1000ml 1,000 ML IV SCH (22:06)
[2019-02-17] VITALS (15 sets, daily range): BP systolic 129–167; BP diastolic 60–100
[2019-02-17] MEDS: HYDROmorphone/NS 1 mg/ml CADD 50 ML IV SCH ×11 (01:00→23:00)
--- NOTE | 2019-02-17 06:14 | NUR ---
Problems reprioritized. Patient report given, questions answered & plan of care reviewed with Bria YODER.
[2019-02-17 06:16] LABS: BASOPHILS % (AUTO) 0.2 % (0-1); EOSINOPHILS # (AUTO) 0.1 X10'3 (0-0.9); EOSINOPHILS % (AUTO) 1.9 % (0-6); HEMATOCRIT 33.5 % (42.0-52.0); HEMOGLOBIN 11.5 g/dl (14.0-17.9); LYMPHOCYTES # (AUTO) 0.6 X10'3 (1.1-4.8); LYMPHOCYTES % (AUTO) 12.6 % (21-51); MEAN CORPUSCULAR HEMOGLOBIN 35.5 PG (27.0-31.0); MEAN CORPUSCULAR HGB CONC 34.3 g/dL (33.0-36.5); MEAN CORPUSCULAR VOLUME 103.6 FL (78-98); MEAN PLATELET VOLUME 8.7 FL (7.4-10.4); MONOCYTES # (AUTO) 0.4 X10'3 (0-0.9); MONOCYTES % (AUTO) 9.2 % (2-12); NEUTROPHILS # (AUTO) 3.5 X10'3 (1.8-7.7); NEUTROPHILS % (AUTO) 76.1 % (42-75); PLATELET COUNT 70 X10'3 (140-440); RED BLOOD COUNT 3.23 X10'6 (4.70-6.10); RED CELL DISTRIBUTION WIDTH 16.1 % (11.5-14.5); WHITE BLOOD COUNT 4.6 X10'3 (4.5-11.0)
[2019-02-17 06:28] LABS: ALANINE AMINOTRANSFERASE 36 U/L (12-78); ALBUMIN 2.3 G/DL (3.4-5.0); ALBUMIN/GLOBULIN RATIO 0.6 (1.1-1.5); ALKALINE PHOSPHATASE 157 IU/L (46-116); ANION GAP 6 (8-16); ASPARTATE AMINO TRANSFERASE 45 U/L (10-37); BILIRUBIN,TOTAL 1.6 MG/DL (0.1-1.0); BLOOD UREA NITROGEN 16 MG/DL (7-18); BUN/CREATININE RATIO 19.8 (5.4-32.0); CALCIUM 8.3 MG/DL (8.5-10.1); CHLORIDE 108 MMOL/L (99-107); CREATININE 0.81 MG/DL (0.60-1.10); GLUCOSE 216 MG/DL (70-104); MAGNESIUM 1.7 MG/DL (1.5-2.4); POTASSIUM 4.2 MMOL/L (3.5-5.1); SODIUM 139 MMOL/L (135-145); TOTAL CARBON DIOXIDE 25.1 MMOL/L (24-32); eGFR > 90 ML/MIN
[2019-02-17] MEDS: K and/or MAG REPLACEMENT MC SCH (07:24)
[2019-02-17] MEDS: enoxaparin 40mg/0.4ml syringe SQ SCH (07:25)
[2019-02-17] MEDS: duloxetine 30mg CAPSULE.DR PO SCH (08:59)
[2019-02-17] MEDS: busPIRone 15mg tablet PO SCH (09:00)
[2019-02-17] MEDS: famotidine 20mg tablet PO SCH (09:00)
[2019-02-17] MEDS: lisinopril 2.5mg tablet PO SCH (09:00)
[2019-02-17] MEDS: pramipexole 0.25mg tablet PO SCH ×2 (12:30→22:02)
[2019-02-17] MEDS ORDERED: CLINDAMYCIN/D5W 900mg/50ml 50 ML IV ONE (13:00)
[2019-02-17] MEDS ORDERED: fentaNYL/PF 50MCG/1 ML 2ML syringe ONE ×2 (13:17→14:50)
[2019-02-17] MEDS ORDERED: rocuronium 10mg/ml inj IV ONE (13:46)
[2019-02-17] MEDS ORDERED: propofol inj 20 ML IV ONE (13:46)
[2019-02-17] MEDS ORDERED: LIDOcaine 2% (20mg/ml) 5ml vial ONE (13:46)
--- NOTE | 2019-02-17 14:53 | NUR ---
Received from OR via ORTHO BED WITH KSGEN , accompanied by Anesthesiologist LIV and report given by Anesthesiolgist. PATIENT WITH 22G PIV IN LEFT UE RUNNING LR AT100. 1+ EDEMA TO LEFT ANKLE AND 3+ TO RIGHT ANKLE, GATCHED FOOT OF BED AND ELEVATED. RIGHT HIP OP SITE DRESSING IS CDI. + DORSALIS PEDIS PRESENT RIGHT FOOT. Addendum: 02/17/19 at 1516 by Graham Bose RN, RN Amended: Links added.
[2019-02-17] MEDS ORDERED: ringers solution, lacted 1,000 ML IV SCH (14:59)
[2019-02-17] MEDS ORDERED: morphine 4 MG/ML inj SYRINge IV PRN (15:00)
[2019-02-17] MEDS ORDERED: HYDROmorphone inj. 0.5 MG/0.5 ML DISP.SYRIN IV PRN (15:00)
[2019-02-17] MEDS ORDERED: ondansetron/PF 4mg/2ml inj IV PRN (15:00)
[2019-02-17] MEDS ORDERED: labetalol 20mg/4ml (5mg/ml) syringe IV PRN (15:30)
--- NOTE | 2019-02-17 15:53 | NUR ---
Report called to receiving nurse. Transferred via ORTHO BED WITH GLASSES ONLY Belongings. Special Issues communicated to receiving nurse GILDARDO YODER .ALL CRITERIA FOR TRANSFER TO THE FLOOR HAS BEEN ACHIEVED. VSS. BED LOW, CALL LIGHT AND VS. SET IN PLACE. RN PRESENT TO ACCEPT CARE. PATIENT RESTING COMFORTABLY IN BED. BELONGINGS SENT WITH PATIENT. DRESSINGS CDI. Addendum: 02/17/19 at 1556 by Graham Bose RN, RN Amended: Links added.
--- NOTE | 2019-02-17 18:32 | NUR ---
Report to Tej YODER
[2019-02-17] MEDS: insulin Lispro (HumaLOG) vial - multi-dose SQ SCH (19:56)
[2019-02-17] MEDS ORDERED: vancomycin/NS 1 GM ADD-VANTAGE 250 ML IV SCH (20:00)
[2019-02-17] MEDS: insulin glargine (Lantus) pen - multi-dose SQ SCH (22:01)
[2019-02-18] MEDS: HYDROmorphone/NS 1 mg/ml CADD 50 ML IV SCH ×3 (01:00→05:00)
--- NOTE | 2019-02-18 02:00 | NUR ---
pt too painful for orthostatic VS. will refer to PT when pt gets up to walk this am.
[2019-02-18 02:29] VITALS: BP 139/60
[2019-02-18] MEDS ORDERED: oxyCODONE/APAP 5-325mg tablet PO PRN (05:50)
[2019-02-18 06:00] VITALS: BP 151/78
[2019-02-18] MEDS: oxyCODONE/APAP 10/325mg tablet PO PRN ×4 (06:02→21:30)
--- NOTE | 2019-02-18 06:07 | NUR ---
reported to days. noted change dilaudid cadd to percocet. gave 10mg tablet for Pre-PT pain. "Oh that's just perfect I've had those before."
--- NOTE | 2019-02-18 06:15 | NUR ---
Patient in room ORTHO 4010. I have received report from Tej and had the opportunity to ask questions and assume patient care.
--- NOTE | 2019-02-18 06:30 | NUR ---
reported to days. noted pt working with PT.
[2019-02-18 06:37] LABS: BASOPHILS % (AUTO) 0.2 % (0-1); EOSINOPHILS # (AUTO) 0.1 X10'3 (0-0.9); HEMATOCRIT 33.7 % (42.0-52.0); HEMOGLOBIN 11.6 g/dl (14.0-17.9); LYMPHOCYTES # (AUTO) 0.7 X10'3 (1.1-4.8); LYMPHOCYTES % (AUTO) 9.5 % (21-51); MEAN CORPUSCULAR HEMOGLOBIN 35.4 PG (27.0-31.0); MEAN CORPUSCULAR HGB CONC 34.3 g/dL (33.0-36.5); MONOCYTES # (AUTO) 0.7 X10'3 (0-0.9); MONOCYTES % (AUTO) 10.1 % (2-12); NEUTROPHILS # (AUTO) 5.7 X10'3 (1.8-7.7); NEUTROPHILS % (AUTO) 79.2 % (42-75); PLATELET COUNT 110 X10'3 (140-440); RED BLOOD COUNT 3.27 X10'6 (4.70-6.10); RED CELL DISTRIBUTION WIDTH 16.5 % (11.5-14.5); WHITE BLOOD COUNT 7.2 X10'3 (4.5-11.0)
[2019-02-18 06:52] LABS: ALANINE AMINOTRANSFERASE 24 U/L (12-78); ALBUMIN 2.1 G/DL (3.4-5.0); ALBUMIN/GLOBULIN RATIO 0.6 (1.1-1.5); ALKALINE PHOSPHATASE 152 IU/L (46-116); ANION GAP 9 (8-16); ASPARTATE AMINO TRANSFERASE 36 U/L (10-37); BILIRUBIN,TOTAL 1.4 MG/DL (0.1-1.0); BLOOD UREA NITROGEN 18 MG/DL (7-18); BUN/CREATININE RATIO 19.4 (5.4-32.0); CALCIUM 7.9 MG/DL (8.5-10.1); CHLORIDE 106 MMOL/L (99-107); CREATININE 0.93 MG/DL (0.60-1.10); GLUCOSE 219 MG/DL (70-104); MAGNESIUM 1.6 MG/DL (1.5-2.4); POTASSIUM 4.4 MMOL/L (3.5-5.1); SODIUM 139 MMOL/L (135-145); TOTAL PROTEIN 5.7 G/DL (6.4-8.2); eGFR 78 ML/MIN
[2019-02-18] MEDS: K and/or MAG REPLACEMENT MC SCH (08:00)
[2019-02-18] MEDS ORDERED: enoxaparin 40mg/0.4ml syringe SQ SCH (08:00)
[2019-02-18] MEDS: insulin Lispro (HumaLOG) vial - multi-dose SQ SCH ×4 (08:27→21:33)
[2019-02-18] MEDS: duloxetine 30mg CAPSULE.DR PO SCH (08:33)
[2019-02-18] MEDS: famotidine 20mg tablet PO SCH (08:33)
[2019-02-18] MEDS: lisinopril 2.5mg tablet PO SCH (08:33)
[2019-02-18] MEDS: busPIRone 15mg tablet PO SCH (08:33)
[2019-02-18] MEDS: enoxaparin 40mg/0.4ml syringe SQ SCH (08:34)
[2019-02-18 10:00] VITALS: BP 126/56
[2019-02-18] MEDS: normal saline 1000ml 1,000 ML IV SCH (10:57)
--- NOTE | 2019-02-18 11:41 | NUR ---
Student Medication Administration: For this medication-pass time frame, all medication were reviewed, dispensed, administered and documented per hospital policy by [facility] Student documentation: I have reviewed all interventions, assessments performed and documented by Pablo CERRATO [facility].
[2019-02-18] MEDS: pramipexole 0.25mg tablet PO SCH ×2 (12:41→21:25)
[2019-02-18] MEDS: baclofen 10mg tablet PO PRN (14:31)
[2019-02-18 18:00] VITALS: BP 125/59
[2019-02-18] MEDS: insulin glargine (Lantus) pen - multi-dose SQ SCH (21:29)
[2019-02-18 22:00] VITALS: BP 103/43
--- NOTE | 2019-02-18 23:50 | NUR ---
pt sat at bedside for 30 min. "I'm just tired of that bed". tolerated well.
[2019-02-19] MEDS: oxyCODONE/APAP 10/325mg tablet PO PRN ×3 (01:04→10:40)
--- NOTE | 2019-02-19 04:37 | NUR ---
noted pt has spasms in fingers where they go stiff and cramp according to pt. "It's ok, they just do that".
--- NOTE | 2019-02-19 05:47 | NUR ---
reported to days. noted pt timid when it comes to PT. educated to push hard to get mobility back. verbalized understanding.
[2019-02-19 06:00] VITALS: BP 114/55
--- NOTE | 2019-02-19 06:41 | NUR ---
Patient in room ORTHO 4010. I have received report from Tej YODER and had the opportunity to ask questions and assume patient care.
[2019-02-19 06:48] LABS: BASOPHILS % (AUTO) 0.2 % (0-1); EOSINOPHILS # (AUTO) 0.1 X10'3 (0-0.9); EOSINOPHILS % (AUTO) 2.3 % (0-6); HEMATOCRIT 28.7 % (42.0-52.0); LYMPHOCYTES # (AUTO) 0.8 X10'3 (1.1-4.8); LYMPHOCYTES % (AUTO) 15.9 % (21-51); MEAN CORPUSCULAR HEMOGLOBIN 35.7 PG (27.0-31.0); MEAN CORPUSCULAR HGB CONC 34.7 g/dL (33.0-36.5); MEAN PLATELET VOLUME 8.2 FL (7.4-10.4); MONOCYTES # (AUTO) 0.5 X10'3 (0-0.9); MONOCYTES % (AUTO) 11.1 % (2-12); NEUTROPHILS # (AUTO) 3.4 X10'3 (1.8-7.7); NEUTROPHILS % (AUTO) 70.5 % (42-75); PLATELET COUNT 73 X10'3 (140-440); RED BLOOD COUNT 2.79 X10'6 (4.70-6.10); RED CELL DISTRIBUTION WIDTH 16.8 % (11.5-14.5); WHITE BLOOD COUNT 4.8 X10'3 (4.5-11.0)
[2019-02-19 07:03] LABS: ALANINE AMINOTRANSFERASE 16 U/L (12-78); ALBUMIN 1.8 G/DL (3.4-5.0); ALBUMIN/GLOBULIN RATIO 0.5 (1.1-1.5); ALKALINE PHOSPHATASE 131 IU/L (46-116); ANION GAP 5 (8-16); ASPARTATE AMINO TRANSFERASE 27 U/L (10-37); BILIRUBIN,TOTAL 1.2 MG/DL (0.1-1.0); BLOOD UREA NITROGEN 24 MG/DL (7-18); BUN/CREATININE RATIO 25.5 (5.4-32.0); CALCIUM 7.5 MG/DL (8.5-10.1); CHLORIDE 106 MMOL/L (99-107); CREATININE 0.94 MG/DL (0.60-1.10); GLUCOSE 183 MG/DL (70-104); MAGNESIUM 1.8 MG/DL (1.5-2.4); POTASSIUM 4.2 MMOL/L (3.5-5.1); SODIUM 137 MMOL/L (135-145); TOTAL CARBON DIOXIDE 26.3 MMOL/L (24-32); TOTAL PROTEIN 5.2 G/DL (6.4-8.2); eGFR 77 ML/MIN
[2019-02-19] MEDS: busPIRone 15mg tablet PO SCH (07:47)
[2019-02-19] MEDS: duloxetine 30mg CAPSULE.DR PO SCH (07:48)
[2019-02-19] MEDS: famotidine 20mg tablet PO SCH (07:49)
[2019-02-19] MEDS: baclofen 10mg tablet PO PRN (07:51)
[2019-02-19] MEDS: lisinopril 2.5mg tablet PO SCH (07:51)
[2019-02-19] MEDS: enoxaparin 40mg/0.4ml syringe SQ SCH (08:00)
[2019-02-19] MEDS: K and/or MAG REPLACEMENT MC SCH (08:00)
[2019-02-19 09:48] VITALS: BP 103/45
[2019-02-19] MEDS ORDERED: polyethylene glycol 3350 17gm powd pack PO SCH (11:20)
[2019-02-19] MEDS: insulin Lispro (HumaLOG) vial - multi-dose SQ SCH (13:24)
[2019-02-19] MEDS: pramipexole 0.25mg tablet PO SCH (13:26)
--- NOTE | 2019-02-19 14:28 | NUR ---
Patient stable for discharge transfer to [facility] today. All belongings sent with patient. Report called. IV out. Dressing changed
== END 2019-02-19 14:10 | DRG 470 ==
LOC: ER 13:33 → ED HOLD 15:34 → EDBEDREQ 16:03 → ORTHO 4S 17:00
PROVIDERS: ADMIT Family Medicine; ATTEND Family Medicine
PROC: 0SRR019 Replacement of Right Hip Joint, Femoral Surface with Metal Synthetic Substitute, Cemented, Open Approach (ICD-10-PCS; principal; 2019-02-17 13:11)
DX: S72.141A Displaced intertrochanteric fracture of right femur, initial encounter for closed fracture (principal); I50.32 Chronic diastolic (congestive) heart failure; I48.0 Paroxysmal atrial fibrillation; F32.9 Major depressive disorder, single episode, unspecified; J44.9 Chronic obstructive pulmonary disease, unspecified; G89.29 Other chronic pain; W01.0XXA Fall on same level from slipping, tripping and stumbling without subsequent striking against object, initial encounter; D64.9 Anemia, unspecified; M51.36 Other intervertebral disc degeneration, lumbar region; I89.0 Lymphedema, not elsewhere classified; R91.8 Other nonspecific abnormal finding of lung field; R74.0 Nonspecific elevation of levels of transaminase and lactic acid dehydrogenase [LDH]; E11.9 Type 2 diabetes mellitus without complications; E78.00 Pure hypercholesterolemia, unspecified; Z79.4 Long term (current) use of insulin; Z85.51 Personal history of malignant neoplasm of bladder; Z87.891 Personal history of nicotine dependence; Z88.0 Allergy status to penicillin; Z88.2 Allergy status to sulfonamides; Z91.048 Other nonmedicinal substance allergy status; Y93.89 Activity, other specified; Y92.090 Kitchen in other non-institutional residence as the place of occurrence of the external cause; Y99.8 Other external cause status; Z79.899 Other long term (current) drug therapy
CPT/HCPCS: 36415; 70450; 71045; 73502; 80053; 81001; 82948; 83036; 83735; 85025; 87081; 93005; 96374; 97110; 97116; 97161; 97530; 97535; 99285; A4618; A6222; A6258; A6449; A6454; A7000; C1713; C1776; G0378; J1170; J1650; J1815; J2001; J2270; J2704; J3010; J3370; J3490; J7030; J7120